=== PATIENT | female | born 1990 | race Caucasian/White ===

== ENCOUNTER → 2024-12-27 | Outpatient (CLI) | payer OTHER, SELFPAY ==
[2024-12-28 10:13] LABS: BVAG Candida Negative (Negative); Bacterial Vaginosis Markers Negative (Negative); Candida glabrata Negative (Negative); Candida krusei PCR Negative (Negative); Trichomonas Negative (Negative)
== END | disposition home or self-care (01) ==
LOC: COPL 16:00
PROVIDERS: PCP Physician Assistant Medical; Referring Provider Physician Assistant Medical; Visit Provider Physician Assistant Medical
DX: B37.89 Other sites of candidiasis (principal); N76.0 Acute vaginitis; A59.01 Trichomonal vulvovaginitis
CPT/HCPCS: 81514

== ENCOUNTER → 2025-01-01 | Outpatient (CLI) | payer OTHER, SELFPAY ==
[2025-01-01 15:13] LABS: Collection Type, Urine Clean Catch; RBC,Urine 0 /hpf (0-3); WBC,Urine 0 /hpf (0-5)
[2025-01-01 15:38] LABS: Basophils % (Auto) 0 % (0-2.5); Eosinophils # (Auto) 0.3 Thou/mm3 (0.0-0.5); Eosinophils % (Auto) 2 % (0-10); Hematocrit 42.9 % (36.0-46.0); Hemoglobin 14.1 g/dL (12.0-16.0); Immature Granulocytes % (Auto) 0 % (0-0); Immature Granulocytes Auto 0.03 Thou/mm3 (0.00-0.00); Lymphocytes # (Auto) 2.1 Thou/mm3 (1.0-4.8); Lymphocytes % (Auto) 20 % (10-50); Mean Corpuscular HGB Conc 32.9 g/dl (31.0-37.0); Mean Corpuscular Hemoglobin 29.6 pg (25.0-35.0); Mean Corpuscular Volume 90 fL (80-100); Monocytes # (Auto) 0.4 Thou/mm3 (0.0-0.8); Monocytes % (Auto) 4 % (0-12); Neutrophils # (Auto) 7.5 Thou/mm3 (1.8-7.7); Neutrophils % (Auto) 73 % (37-80); Nucleated Red Blood Cell % 0 /100 WBC (0); Platelet Count 275 Thou/mm3 (140-440); RDW Standard Deviation 43.8 fL (36.4-46.3); Red Blood Count 4.77 Miln/mm3 (4.00-5.20); White Blood Count 10.4 Thou/mm3 (3.6-11.0)
[2025-01-01 15:57] LABS: Bacteria,Urine 1+; Bilirubin,Urine Negative (Negative); Blood,Urine Negative (Negative); Clarity,Urine Clear (Clear/Hazy); Color,Urine Colorless (Lt Yel-Yel); Glucose, Urine Negative (Negative); Ketones,Urine Negative (Negative); Leukocyte Esterase,Urine Negative (Negative); Nitrite,Urine Negative (Negative); PH,Urine 7.5 (5.0-7.0); Protein,Urine Negative (Neg - Trace); Specific Gravity,Urine 1.004 (1.001-1.035); Squamous Epithelial Cell,Urine 1 /hpf (0-5); Urobilinogen,Urine Negative mg/dL (0.0-1.0)
[2025-01-01 16:01] LABS: Amphetamine/Methamp Scrn,U Negative (Negative); Barbiturate Screen,Urine Negative (Negative); Benzodiazepines Screen,Urine Negative (Negative); Benzoylecgonine Screen, Ur Negative (Negative); Fentanyl Screen,Urine Negative (Negative); Opiate Screen,Urine Negative (Negative); THC Screen,Urine Negative (Negative)
[2025-01-01 16:16] LABS: Hepatitis B Surface Antigen Non Reactive (Non React); Rubella, IgG Antibody Reactive (Immune)
[2025-01-01 16:37] LABS: Beta HCG,Quantitative 25365 mIU/mL (<5.0); Creatinine (Component) 0.8 mg/dL (0.6-1.3); Glucose 85 mg/dL (74-106); eGFR > 60 See Note
[2025-01-01 16:39] LABS: HIV (1&2) Antibody Rapid Non-Reactive
[2025-01-01 17:07] LABS: Glucose Estimated Average 103 mg/dL (80-131); Hemoglobin A1C 5.2 % Hgb (4.8-6.0)
[2025-01-04 17:48] LABS: HCV RNA, PCR <15 NOT DETECTED IU/mL
[2025-01-05 06:25] LABS: HCV RNA, PCR Log IU <1.18 NOT DETECTED Log IU/mL; HIV Ag/Ab, 4th Gen NON-REACTIVE
== END | disposition home or self-care (01) ==
LOC: SLDO 15:08
PROVIDERS: PCP Physician Assistant Medical; Referring Provider Physician Assistant Medical; Visit Provider Physician Assistant Medical
DX: Z34.82 Encounter for supervision of other normal pregnancy, second trimester (principal)
CPT/HCPCS: 36415; 80307; 81001; 82565; 82947; 83036; 84702; 85025; 86703; 86762; 86850; 86900; 86901; 87077; 87086; 87186; 87340; 87389; 87522

== ENCOUNTER → 2025-03-07 | Outpatient (CLI) | payer OTHER, MEDICAID, SELFPAY ==
[2025-03-07 08:39] LABS: Misc Send Out* See Sep Rpt; Quantiferon-TB* See Sep Rpt
[2025-03-07 10:06] LABS: Basophils # (Auto) 0.1 Thou/mm3 (0.0-0.2); Basophils % (Auto) 0 % (0-2.5); Eosinophils # (Auto) 0.3 Thou/mm3 (0.0-0.5); Eosinophils % (Auto) 3 % (0-10); Hematocrit 40.8 % (36.0-46.0); Hemoglobin 13.7 g/dL (12.0-16.0); Immature Granulocytes % (Auto) 1 % (0-0); Immature Granulocytes Auto 0.15 Thou/mm3 (0.00-0.00); Lymphocytes % (Auto) 18 % (10-50); Mean Corpuscular HGB Conc 33.6 g/dl (31.0-37.0); Mean Corpuscular Hemoglobin 30.8 pg (25.0-35.0); Mean Corpuscular Volume 92 fL (80-100); Monocytes # (Auto) 0.5 Thou/mm3 (0.0-0.8); Monocytes % (Auto) 5 % (0-12); Neutrophils # (Auto) 8.3 Thou/mm3 (1.8-7.7); Neutrophils % (Auto) 73 % (37-80); Nucleated Red Blood Cell % 0 /100 WBC (0); Platelet Count 248 Thou/mm3 (140-440); RDW Standard Deviation 44.8 fL (36.4-46.3); Red Blood Count 4.45 Miln/mm3 (4.00-5.20); White Blood Count 11.3 Thou/mm3 (3.6-11.0)
[2025-03-07 10:34] LABS: Hepatitis B Surface Antigen Non Reactive (Non React); Rubella, IgG Antibody Reactive (Immune)
[2025-03-07 10:41] LABS: Glucose Estimated Average 105 mg/dL (80-131); Hemoglobin A1C 5.3 % Hgb (4.8-6.0)
[2025-03-07 10:50] LABS: Creatinine (Component) 0.8 mg/dL (0.6-1.3); Glucose 100 mg/dL (74-106); eGFR > 60 See Note
[2025-03-07 10:51] LABS: Beta HCG,Quantitative 5592 mIU/mL (<5.0)
[2025-03-12 07:18] LABS: HIV Ag/Ab, 4th Gen NON-REACTIVE
== END | disposition home or self-care (01) ==
PROVIDERS: PCP Family Medicine; Referring Provider Family Medicine; Visit Provider Family Medicine
DX: Z34.82 Encounter for supervision of other normal pregnancy, second trimester (principal)
CPT/HCPCS: 36415; 82565; 82947; 83036; 84702; 85025; 86480; 86762; 86850; 86900; 86901; 87340; 87389

== ENCOUNTER → 2025-03-28 | Outpatient (CLI) | payer OTHER, MEDICAID, SELFPAY ==
[2025-03-28 17:11] LABS: Glucose,1 Hour PP 50gm Dose 183 mg/dL (80-140)
[2025-03-28 17:26] LABS: Syphilis Nonreactive (Nonreactive)
== END | disposition home or self-care (01) ==
LOC: SLDO 15:37
PROVIDERS: Referring Provider Physician Assistant Medical; Visit Provider Physician Assistant Medical
DX: Z34.82 Encounter for supervision of other normal pregnancy, second trimester (principal)
CPT/HCPCS: 36415; 82950; 86780

== ENCOUNTER 2025-04-22 18:33 | Observation (INO) | payer OTHER, MEDICAID, SELFPAY ==
[2025-04-22] VITALS (51 sets, daily range): BP systolic 102–132; BP diastolic 53–68; PULSE 88–134; RESP 18–100; TEMP 36.9; O2SAT 92–100; BMI 37.6
--- NOTE | 2025-04-22 19:06 | XR_ITS ---
Examination: Complete OB ultrasound greater than 14 weeks Date and time of exam: April 22, 2025 1923 hours INDICATIONS: Light vaginal bleeding today Findings: Viable intrauterine single fetus with single amniotic sac presentation cephalic Cardiac motion 133 BPM Placenta posterior grade 2 The umbilical cord insertion seen Amniotic fluid index 15.5 cm Cervix 4.0 cm Right ovary 4.7 cm arterial flow Left ovary obscured by bowel gas No placental abruption. Composite estimated gestational age based on BPD, head circumference, abdominal circumference, femur length is 30 weeks 1 day Estimated weight 1530 g. Survey of intracranial anatomy, spinal anatomy, abdominal anatomy, four-chamber heart performed with no abnormalities identified. Impression: Viable intrauterine gestation cephalic presentation.
[2025-04-22 19:38] LABS: ROM Kit Lot # 578010271; ROM Swab Mixed By: YOUNB; Swb Mxed in Solvent 1 min? Yes
[2025-04-22 19:39] LABS: Rupture of Fetal Membranes Positive (Negative)
[2025-04-22] MEDS: RINGERS LACTATED 1000 ML 1,000 ML 75 ML IV (20:18)
[2025-04-22] MEDS: Ampicillin Inj 2,000 MG in SODIUM CHLORIDE 0.9% (POP) 100 ML 200 MG IV (20:18)
[2025-04-22] MEDS: Magnesium Sulfate 4 GM Ivpb 4 GM/50 ML BAG IV (20:19)
[2025-04-22] MEDS: AZITHROMYCIN INJ 500 MG in SODIUM CHLORIDE 0.9% 250 ML 250 ML 250 MG IV (20:37)
[2025-04-22] MEDS: BETAMET ACET/BETAMET NA PH (Celestone) 6 MG/ML VIAL 12 MG IM (20:38)
[2025-04-22] MEDS: MAGNESIUM SULF 20 GM IVPB 20 GM/500 ML BAG IV (20:39)
[2025-04-22 20:50] LABS: Basophils % (Auto) 0 % (0-2.5); Eosinophils # (Auto) 0.3 Thou/mm3 (0.0-0.5); Eosinophils % (Auto) 2 % (0-10); Hematocrit 38.7 % (36.0-46.0); Hemoglobin 13.5 g/dL (12.0-16.0); Immature Granulocytes % (Auto) 1 % (0-0); Immature Granulocytes Auto 0.08 Thou/mm3 (0.00-0.00); Lymphocytes # (Auto) 2.8 Thou/mm3 (1.0-4.8); Lymphocytes % (Auto) 23 % (10-50); Mean Corpuscular HGB Conc 34.9 g/dl (31.0-37.0); Mean Corpuscular Hemoglobin 30.5 pg (25.0-35.0); Mean Corpuscular Volume 88 fL (80-100); Monocytes # (Auto) 0.7 Thou/mm3 (0.0-0.8); Monocytes % (Auto) 5 % (0-12); Neutrophils # (Auto) 8.4 Thou/mm3 (1.8-7.7); Neutrophils % (Auto) 69 % (37-80); Nucleated Red Blood Cell % 0 /100 WBC (0); Platelet Count 256 Thou/mm3 (140-440); RDW Standard Deviation 42.5 fL (36.4-46.3); Red Blood Count 4.42 Miln/mm3 (4.00-5.20); White Blood Count 12.2 Thou/mm3 (3.6-11.0)
--- NOTE | 2025-04-22 20:59 | PD.LDANTE ---
Documentation for date of: 04/22/25 OB Labor/Induct. HPI History of Present Illness : 3 Para: 1 Term pregnancies: 1 pregnancies: 0 Living children: 1 History of Abortions: Spontaneous and Elective: 1 History of Vaginal deliveries: 0 History of sections: Yes History of : No KARLEY: 07/01/25 Gestational Age (weeks): 30 Gestational Age (days): 0 History of present illness: This is a 34-year-old 3 para 1-0-1-1 with intrauterine at 30 weeks and 0 days by last period and first trimester ultrasound. She presented to maternal unit today at 1845 complaining of vaginal spotting and possible leaking. She has had no further leaking since being in the maternal infant unit. She denies any contractions. She reports normal movement. She denies any bleeding since being in the maternal infant unit. Her episode of spotting earlier was after voiding. Patient has a history of a previous low-transverse section at full-term due to failed induction. Her current was complicated by gestational diabetes mellitus class A1 and group B strep urinary tract infection early in . History of Present Dating criteria: LMP confirmed by 1st trimester US Adequate Care: Yes Obstetrical complications: gestational diabetes Medical complications: other (GBS UTI 12/2024. ) Review of Systems Review of Systems Narrative Review of Systems: She denies any chest pain palpitations cough fever shortness of breath or lower extremity pain Past Medical History Surgical History SURGICAL: Positive Section Social History SOCIAL: Denies any alcohol, drug use or smoking Meds Home Medications and Allergies Home Medications ?Medication ?Instructions ?Recorded ?Confirmed ?Type Vitamin * 1 tab PO QDAY SUPPLEMENT #0 tabs 06/05/14 04/22/25 History Allergies Allergy/AdvReac Type Severity Reaction Status Date / Time ceftriaxone AdvReac Mild Hives Verified 04/22/25 20:11 OB Exam Physical Exam Vital signs: Temp Pulse Resp BP Pulse Ox 98.5 F 98 18 112/58 L 100 04/22/25 20:00 04/22/25 20:55 04/22/25 20:00 04/22/25 20:55 04/22/25 20:54 Routine HEENT Exam Comments: Oral pharynx and sclera clear Routine Respiratory Exam Comments: Clear to auscultation bilaterally Routine Cardiovascular Exam Comments: Tachycardic but regular rhythm Routine Abdominal Exam Comments: Gravid consistent with fundus at 30 weeks size nontender no palpable contractions Detailed Labor and Delivery Exam Comments: Perineal pad: No bleeding Routine Extremities Exam Comments: Nontender or edema Routine Skin Exam Comments: No gross rashes or lesions Routine Neurological Exam Comments: No focal deficit OB Results Labs 04/22/25 20:24 04/22/25 20:24 Labs: Short CBC 04/22/25 Range/Units 20:24 WBC 12.2 H (3.6-11.0) Thou/mm3 Hgb 13.5 (12.0-16.0) g/dL Hct 38.7 (36.0-46.0) % Plt Count 256 (140-440) Thou/mm3 Impressions Impression: Intrauterine at 30 weeks and 0 days premature rupture of membranes (Amniosure Positive) Previous delivery Threatened labor Vaginal Bleeding in the 2nd trimester without signs of abruption or previa. Latency antibiotics in the form of ampicillin and Zithromax Magnesium sulfate for NO BAKE MOLDER stabilization and Tocolysis Betamethasone for lung maturity Transfer to tertiary care center with access to maternal- medicine specialist and junior manufacturing engineer Case discussed with Dr. Lilly maternal- medicine at [facility] who agrees to accept patient for transfer Case and plan reviewed with Gavi CLAY charge nurse. Patient is stable for transfer I discussed with the patient and her at length and in detail the nature of her condition her current test results and the risk complications alternatives and benefits of the current treatment plan as well as transfer by ambulance to [place]. She verbalized understanding and agreed to the transfer.
[2025-04-22 21:08] LABS: Alanine Aminotransferase 28 U/L (10-49); Albumin/Globulin Ratio 1.7 (1.2-2.2); Alkaline Phosphatase 87 U/L (46-116); Anion Gap 12 (7-16); Aspartate Amino Transferase 14 U/L (0-34); BUN/Creatinine Ratio 6 Ratio (12-20); Bilirubin,Total 0.2 mg/dL (0.3-1.2); Blood Urea Nitrogen 5 mg/dL (9-23); Calcium 8.9 mg/dL (8.3-10.6); Calcium (Corrected) 8.9 mg/dL (8.5-10.1); Carbon Dioxide 25.1 mMol/L (20.0-31.0); Chloride 106 mMol/L (98-107); Creatinine (Component) 0.8 mg/dL (0.6-1.3); Estimated Creatinine Clearance 101.4 mL/min (>60); Globulin 2.3 gm/dL (2.3-3.5); Glucose 90 mg/dL (74-106); Osmolality,Calculated 282 (275-295); Potassium 3.6 mMol/L (3.4-5.1); Sodium 143 mMol/L (136-145); Total Protein 6.3 gm/dL (5.7-8.2); eGFR > 60 See Note
--- NOTE | 2025-04-23 05:51 | PC.NURSE ---
04/22/25 2210 Left unit with patient and ambulance team. RN to accompany patient on transfer to [facility]. 2215- VS 131/67, 98% RA, 121. FHT 142 bpm. 2230- vs 121/77, 95% ra, 114. fht 146 bpm. 2245- VS 106/69, 94% RA, 115, RR 24FHT 143 2300- VS 101/54, 108, 94% RA. 2315- FHT 155 BPM. 2317- ARRIVED TO [facility].
== END 2025-04-22 21:59 | disposition short-term general hospital (02) ==
PROVIDERS: Admitting Provider Specialist; Visit Provider Specialist
DX: O26.853 Spotting complicating pregnancy, third trimester (principal); O34.211 Maternal care for low transverse scar from previous cesarean delivery; Z3A.30 30 weeks gestation of pregnancy; O24.419 Gestational diabetes mellitus in pregnancy, unspecified control
CPT/HCPCS: 36415; 59025; 59899; 76805; 80053; 84112; 85025; 86850; 86900; 86901; 96372; G0378; J0290; J0456; J0702; J3475; J7050; J7120

== ENCOUNTER → 2025-04-26 | Outpatient (CLI) | payer OTHER, SELFPAY ==
[2025-04-26 17:36] LABS: Basophils % (Auto) 0 % (0-2.5); Eosinophils # (Auto) 0.1 Thou/mm3 (0.0-0.5); Eosinophils % (Auto) 1 % (0-10); Hematocrit 43.7 % (36.0-46.0); Hemoglobin 13.1 g/dL (12.0-16.0); Immature Granulocytes % (Auto) 1 % (0-0); Immature Granulocytes Auto 0.16 Thou/mm3 (0.00-0.00); Lymphocytes % (Auto) 23 % (10-50); Mean Corpuscular Volume 100 fL (80-100); Monocytes % (Auto) 8 % (0-12); Neutrophils # (Auto) 8.9 Thou/mm3 (1.8-7.7); Neutrophils % (Auto) 67 % (37-80); Nucleated Red Blood Cell % 0 /100 WBC (0); Platelet Count 299 Thou/mm3 (140-440); RDW Standard Deviation 53.9 fL (36.4-46.3); Red Blood Count 4.37 Miln/mm3 (4.00-5.20); White Blood Count 13.1 Thou/mm3 (3.6-11.0)
[2025-04-26 18:16] LABS: Syphilis Nonreactive (Nonreactive)
== END | disposition home or self-care (01) ==
LOC: SLDO 16:37
PROVIDERS: Referring Provider Specialist; Visit Provider Specialist
DX: Z34.83 Encounter for supervision of other normal pregnancy, third trimester (principal)
CPT/HCPCS: 36415; 85025; 86780

== ENCOUNTER → 2025-06-04 | Outpatient (CLI) | payer OTHER, SELFPAY ==
[2025-06-05 10:21] LABS: BVAG Candida Negative (Negative); Bacterial Vaginosis Markers Positive (Negative); Candida glabrata Negative (Negative); Candida krusei PCR Negative (Negative); Trichomonas Negative (Negative)
== END | disposition home or self-care (01) ==
LOC: SLDO 16:25
PROVIDERS: Referring Provider Physician Assistant Medical; Visit Provider Physician Assistant Medical
DX: Z34.83 Encounter for supervision of other normal pregnancy, third trimester (principal)
CPT/HCPCS: 81514

== ENCOUNTER 2025-06-21 05:56 | Inpatient (IN) | payer OTHER, MEDICAID, SELFPAY ==
--- NOTE | 2025-06-19 07:39 | ESHP_ITS ---
RE: NI CORTEZ : 1990 DATE OF ADMISSION: 06/21/2025 DATE OF SURGERY: 06/21/2025 HISTORY OF PRESENT ILLNESS: This is a 35-year-old 3, para 1-0-1-1 with due date of 07/01/2025 with intrauterine at 38 weeks and 4 days on 06/21/2025 with borderline chronic hypertension on no medications. She denies any headaches, change in vision, or right upper quadrant pain. Her care was complicated by gestational diabetes, diet controlled. ALLERGIES: PATIENT IS ALLERGIC TO ROCEPHIN. MEDICATIONS: 1. multivitamin 1 p.o. daily. 2. Albuterol 2 puffs q.4 hours p.r.n. shortness of breath or wheezing. 3. Symbicort 2 puffs q.12 hours p.r.n. shortness of breath or wheezing. PAST MEDICAL HISTORY: Borderline chronic hypertension, group B strep carrier, current , gestational diabetes mellitus class A1, delivery, migraine headaches, recurrent urinary tract infections, chronic pelvic pain, advanced maternal age, asthma, anxiety. FAMILY HISTORY: Breast cancer, diabetes, anxiety, hypertension. weeks, delivery, 6 pound 11 ounce male. No complications. PAST SURGICAL HISTORY: delivery 12/2023. REVIEW OF SYSTEMS: She denies any chest pain, palpitations, cough, fever, shortness of breath or lower extremity pain. PHYSICAL EXAMINATION: VITAL SIGNS: Blood pressure 142/87, heart rate 88, respirations 18, temperature 98.6, weight 209 pounds. HEENT: Oropharynx and sclerae are clear. LUNGS: Clear to auscultation bilaterally. HEART: Regular rate and rhythm. ABDOMEN: Gravid, term size. Old Pfannenstiel scar noted. EXTREMITIES: Nontender. SKIN: No gross rashes or lesions. NEUROLOGIC: No focal deficits. ASSESSMENT AND PLAN: Intrauterine at 38 weeks and 4 days, borderline chronic hypertension, gestational diabetes mellitus A1, previous delivery, elects repeat delivery. PLAN: Repeat delivery. Informed consent was obtained. The patient was made aware of the risks, complications, alternatives, and benefits of the proposed procedure and she agrees. DT: 07:03:13 TT: 07:57:00 Ref: [id number] - TID: [id number] [facility]
[2025-06-20 11:04] LABS: Basophils # (Auto) 0.0 Thou/mm3 (0.0-0.2); Basophils % (Auto) 0 % (0-2.5); Eosinophils # (Auto) 0.2 Thou/mm3 (0.0-0.5); Eosinophils % (Auto) 2 % (0-10); Hematocrit 37.4 % (36.0-46.0); Hemoglobin 12.3 g/dL (12.0-16.0); Immature Granulocytes Auto 0.04 Thou/mm3 (0.00-0.00); Lymphocytes # (Auto) 2.3 Thou/mm3 (1.0-4.8); Lymphocytes % (Auto) 28 % (10-50); Mean Corpuscular HGB Conc 32.9 g/dl (31.0-37.0); Mean Corpuscular Hemoglobin 29.4 pg (25.0-35.0); Mean Corpuscular Volume 90 fL (80-100); Monocytes # (Auto) 0.6 Thou/mm3 (0.0-0.8); Monocytes % (Auto) 7 % (0-12); Neutrophils # (Auto) 5.1 Thou/mm3 (1.8-7.7); Neutrophils % (Auto) 62 % (37-80); Nucleated Red Blood Cell # 0.00 Thou/mm3 (0.00-0.00); Nucleated Red Blood Cell % 0 /100 WBC (0); Platelet Count 191 Thou/mm3 (140-440); RDW Standard Deviation 44.9 fL (36.4-46.3); Red Blood Count 4.18 Miln/mm3 (4.00-5.20); White Blood Count 8.2 Thou/mm3 (3.6-11.0)
[2025-06-20 11:18] LABS: Alanine Aminotransferase 12 U/L (10-49); Albumin, Serum 3.8 gm/dL (3.5-5.0); Albumin/Globulin Ratio 1.7 (1.2-2.2); Alkaline Phosphatase 122 U/L (46-116); Anion Gap 10 (7-16); Aspartate Amino Transferase 15 U/L (0-34); BUN/Creatinine Ratio 6 Ratio (12-20); Bilirubin,Total 0.2 mg/dL (0.3-1.2); Blood Urea Nitrogen 5 mg/dL (9-23); Calcium 9.5 mg/dL (8.3-10.6); Calcium (Corrected) 9.7 mg/dL (8.5-10.1); Carbon Dioxide 23.2 mMol/L (20.0-31.0); Chloride 108 mMol/L (98-107); Creatinine (Component) 0.9 mg/dL (0.6-1.3); Globulin 2.2 gm/dL (2.3-3.5); Glucose 72 mg/dL (74-106); Osmolality,Calculated 277 (275-295); Potassium 3.8 mMol/L (3.4-5.1); Sodium 141 mMol/L (136-145); Total Protein 6.0 gm/dL (5.7-8.2); eGFR > 60 See Note
[2025-06-20 11:34] LABS: Syphilis Nonreactive (Nonreactive)
[2025-06-20 12:14] LABS: INR 0.9 (0.9-1.3); Partial Thromboplastin Time 25.1 Seconds (22.0-36.0); Prothrombin Time 10.2 Seconds (9.0-12.2)
[2025-06-21] VITALS (19 sets, daily range): BP systolic 0–134; BP diastolic 0–88; PULSE 71–98; RESP 14–20; TEMP 36.3–37.1; O2SAT 96–100; BMI 39.9
[2025-06-21] MEDS: RINGERS LACTATED 1000 ML 1,000 ML 125 ML IV (06:37)
[2025-06-21] MEDS: FAMOTIDINE INJ 10 MG/ML VIAL 2 ML 20 MG IV (07:25)
[2025-06-21] MEDS: METOCLOPRAMIDE INJ 5 MG/ML VIAL 2 ML 10 MG IVP (07:25)
[2025-06-21] MEDS: GENTAMICIN/NS 80 MG IVPB 80 MG/50 ML PIGGYBACK 50 MG IV (07:25)
--- NOTE | 2025-06-21 07:29 | ESDS_ITS ---
DS: Providers Provider Date of admission: 06/21/25 05:56 Primary care physician: Physician No Primary/Family Admitting Provider: Arnulfo Scott MD Attending Provider on Admission: Arnulfo Scott MD Attending Provider on DC: Arnulfo Scott MD Discharging Provider: Arnulfo Scott MD DS: Diagnosis Discharge Diagnosis (1) Gestational diabetes mellitus, class A1: Status: Acute (2) Borderline hypertension: Status: Acute (3) delivery delivered: Status: Acute Problem List Completed Was Problem List Reviewed/Reconciled?: Yes Summary/Hosp Course Brief History: This is a 35-year-old 3, para 1-0-1-1 with due date of 07/01/2025 with intrauterine at 38 weeks and 4 days on 06/21/2025 with borderline chronic hypertension on no medications. She denies any headaches, change in vision, or right upper quadrant pain. Her care was complicated by gestational diabetes, diet controlled. C/S on 06/21/2025. Viable female 7/8/8. Peripartum Data Delivery Method: Low Transverse Procedures: Procedures Operation Date: 06/21/25 07:45 <No data on this case meets the specified criteria> Time Spent with Patient Time attestation: Total time spent providing and/or coordinating discharge services: Exam Vital Signs Pulse BP 84 131/88 H 06/21/25 07:02 06/21/25 07:02 Discharge Plan Plan Patient Disposition: HOME (Self Care) Patient condition on transfer: Stable Prescriptions/Referrals Prescriptions/Med Rec: New ibuprofen 600 mg tablet 600 mg PO Q6H PRN (Reason: pain) Qty: 30 0RF Continued Vitamin 27 mg iron- 800 mcg tablet 1 tab PO QDAY omeprazole 40 mg capsule,delayed release(DR/EC) 40 mg PO QDAY magnesium 250 mg tablet 250 mg PO QDAY Referrals: No Primary/Family,Physician [Primary Care Provider] - Patient/Caregiver Discharge Instructions Discharge Activity: activity as tolerated Other Discharge Activity Instructions:: Follow up with Dr Scott in the office in 2 weeks. She already has a Rx for [place]. Education Materials: C Section Dc Print Language: Guamanian Stand Alone Forms: Sirisha Award Info., Patient Portal Info Letter Planned Discharge Date 06/23/25
--- NOTE | 2025-06-21 07:31 | ESOP_ITS ---
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 Procedure Date of procedure: 06/21/25 Procedure Performed: Repeat Low Transverse C/S via Pfanensteil Skin Incision Indication: IUP 38w4d Prior C/S Desires repeat Borderline chronic HTN GDMA1 well controlled AMA Pre-Op diagnosis: IUP 38w4d Prior C/S Desires repeat Borderline chronic HTN GDMA1 well controlled AMA Post-Op diagnosis: IUP 38w4d Prior C/S Desires repeat Borderline chronic HTN GDMA1 well controlled AMA Anesthesia type: Spinal Procedure description: After proper informed consent was obtained and the patient was made aware of the risks, complications, alternatives and benefits of the proposed procedure she was taken to the operating room where she underwent induction of spinal anesthesia. She was prepped and draped in the usual sterile fashion. A timeout was performed.? A Pfannenstiel skin incision was made with the scalpel and carried through to the underlying layer of fascia with the Bovie. The fascia was nicked in the midline incision and the incision was extended bilaterally with the Bovie. The inferior aspect of the fascial incision was grasped with Meng clamps elevated and the underlying rectus muscle dissected off with the Bovie. The superior aspect the fascial incision was grasped with Meng clamps elevated and the underlying rectus muscle dissected off with the Bovie. The rectus muscles were in the midline. The peritoneum was grasped between 2 Bassett clamps and entered sharply with the Metzenbaum scissors. The peritoneum was extended superiorly and inferiorly with good visualization of the bladder. The vesicouterine peritoneum was incised transversely and the bladder flap created digitally. A Oumou blade was inserted. A low transverse incision was made in the uterus with a scapel and the incision was extended digitally. The 's head delivered and the mouth and nose were suctioned with the bulb suction. The shoulder and body delivered atraumatically. The cord was clamped after 30 second delayed cord clamping and the cord was cut.? The female infant was handed off to the waiting Pediatric staff, cord blood was collected for lab testing. The placenta was removed complete and intact. The uterus was exteriorized and cleared of all clots and debris. The uterine incision was closed with #1-0 chromic catgut suture in a running interlocking fashion. A second layer of the same suture was used to imbricate the first layer and obtain excellent he mostasis. The vesicouterine peritoneum was closed with 2-0 chromic catgut suture in a running fashion. The firm uterus was returned to the abdomen. The gutters were cleared of all clots and debris. The peritoneum was closed with 0 chromic catgut suture in running fashion. The rectus muscle was closed with 0 chromic catgut suture. The fascia was closed with 0 Vicryl beginning at each angle and ending in the center in a running fashion. The subcutaneous tissue was irrigated with warmed normal saline solution and found to be hemostatic. The subcutaneous tissue was closed with 2-0 chromic catgut suture in a running fashion. The skin was closed with 4-0 Monocryl. A Dermabond Prineo dressing was applied and a sterile pressure dressing was applied.? She tolerated the procedure well. Counts were correct. I discussed with the patient the nature of her condition, intraoperative findings and expectation for recovery all? questions answered. Specimen: none Estimated blood loss (ml): 600 Findings: Viable female , APGARS 7/7/8. Clear amniotic fluid Cephalic Placenta removed complete and intact Normal appearing uterus and ovaries. Complications: none Surgical staff Operation Date: 06/21/25 07:45 <No data on this case meets the specified criteria> [facility] Diagnosis Discharge Diagnosis (1) Gestational diabetes mellitus, class A1: Status: Acute (2) Borderline hypertension: Status: Acute (3) delivery delivered: Status: Acute Problem List Completed Was Problem List Reviewed/Reconciled?: Yes
[2025-06-21] MEDS: OXYTOCIN in NS 20 units 20 UNIT/1,000 ML BAG 125 UNIT IV ×2 (09:12→17:20)
[2025-06-21] MEDS: SIMETHICONE 80 MG CHEW PO ×2 (09:23→17:20)
--- NOTE | 2025-06-21 11:19 | PC.NURSE ---
Pt called out requesting more benadryl, pt reports still feeling itchy. Call made to Yulia Pollack no answer
[2025-06-21] MEDS: ONDANSETRON INJ 2 MG/ML INJ 2 ML 4 MG IVP (13:09)
[2025-06-21 14:37] LABS: Basophils # (Auto) 0.1 Thou/mm3 (0.0-0.2); Basophils % (Auto) 0 % (0-2.5); Eosinophils # (Auto) 0.0 Thou/mm3 (0.0-0.5); Eosinophils % (Auto) 0 % (0-10); Hematocrit 33.1 % (36.0-46.0); Hemoglobin 11.0 g/dL (12.0-16.0); Immature Granulocytes Auto 0.06 Thou/mm3 (0.00-0.00); Lymphocytes # (Auto) 1.8 Thou/mm3 (1.0-4.8); Lymphocytes % (Auto) 12 % (10-50); Mean Corpuscular HGB Conc 33.2 g/dl (31.0-37.0); Mean Corpuscular Hemoglobin 30.0 pg (25.0-35.0); Mean Corpuscular Volume 90 fL (80-100); Monocytes # (Auto) 0.8 Thou/mm3 (0.0-0.8); Monocytes % (Auto) 6 % (0-12); Neutrophils # (Auto) 11.9 Thou/mm3 (1.8-7.7); Neutrophils % (Auto) 81 % (37-80); Nucleated Red Blood Cell # 0.00 Thou/mm3 (0.00-0.00); Nucleated Red Blood Cell % 0 /100 WBC (0); Platelet Count 163 Thou/mm3 (140-440); RDW Standard Deviation 44.5 fL (36.4-46.3); Red Blood Count 3.67 Miln/mm3 (4.00-5.20); White Blood Count 14.7 Thou/mm3 (3.6-11.0)
[2025-06-22] MEDS: ACETAMINOPHEN 325 MG TABLET 650 MG PO (00:01)
[2025-06-22] MEDS: HYDROcodone/APAP 5/325 TABLET 1 TAB PO ×3 (02:53→13:53)
[2025-06-22 03:00] VITALS: BP 113/79; PULSE 80; RESP 16; TEMP 36.6; O2SAT 95
--- NOTE | 2025-06-22 05:56 | OBDSUM_ITS ---
Data (Duran) Data Hx Section: Yes : 3 Term: 1 : 0 Livin Abortions: Spontaneous & Theraputic: 1 Delivery Data (Duran) Labor Data Induction/Augmentation Agent: None ROM date: 06/21/25 ROM time: 08:15 Amniotic membrane rupture type: Artificial Amniotic fluid description: Clear Delivery Data EDC: 07/01/25 EDC calculated by:: LMP/early US confirmation Onset of labor date: 06/21/25 Onset of labor time: 08:15 Complete dilation date: 06/21/25 Complete dilation time: 08:15 [place] delivery date: 06/21/25 [place] delivery time: 08:15 Gestational age (weeks): 38 Gestational age (days): 4 Placenta delivery date: 06/21/25 Placenta delivery time: 08:16 Stage 1 total time: Labor - Stage 1 Duration 0 minutes Delivered by: Geiling Delivery nurse: Daljit Desai nurse: Walter Automatic Trimming Sewer at delivery: No Support person(s) at delivery: FOB Other staff at delivery: ACLLI NOLEN, FAMILY PHYSICIANAGATA Pollack CRNA Delivery Method Delivery method: Low Transverse Presentation: Vertex Anesthesia Type Anesthesia Type: Spinal Anesthesia type: Spinal Placenta Placenta delivery description: Manual Removal Cord blood sent to lab: Yes cord blood collection: Cord Blood Type Episiotomy Episiotomy description: None EBL Estimated blood loss (ml): 600 Umbilical Cord cord description: 3 Vessels Additional Procedures None Complications Complications: None Data (Duran) Data order: 1 's gender: Female Identification band number: [id number] weight (gms): 7 lb 3.346 oz Weight (pounds): 7 lbs and 3.3 ozs [place] length: 19.49 in 1 minute: 7 5 minutes: 7 10 minutes: 8
--- NOTE | 2025-06-22 07:21 | PD.LDPPPRG ---
Subjective Subjective Interval history: Postop day #1 Patient denies any problem or complaint. She is voiding and ambulating and tolerating a regular diet and passing flatus. She denies any nausea or vomiting. She denies any excessive vaginal bleeding. She denies any chest pain palpitation shortness of breath or lower extremity pain. Exam Vital Signs Temp Pulse Resp BP Pulse Ox O2 Del Method 97.9 F 80 16 113/79 95 Room Air 06/22/25 03:00 06/22/25 03:00 06/22/25 03:00 06/22/25 03:00 06/22/25 03:00 06/22/25 03:00 Routine Respiratory Exam Comments: Clear to auscultation bilaterally Routine Cardiovascular Exam Comments: Regular rate and rhythm Routine Abdominal Exam Comments: Dressing dry and intact Fundus is firm Routine Extremities Exam Comments: Nontender Objective Labs 06/21/25 14:05 06/20/25 09:26 Labs: Laboratory Results - last 24 hr 06/21/25 14:05 WBC 14.7 H D RBC 3.67 L Hgb 11.0 L Hct 33.1 L MCV 90 MCH 30.0 MCHC 33.2 RDW Std Deviation 44.5 Plt Count 163 Neut % (Auto) 81 H Lymph % (Auto) 12 [place] % (Auto) 6 Eos % (Auto) 0 Baso % (Auto) 0 Neut # (Auto) 11.9 H Lymph # (Auto) 1.8 [place] # (Auto) 0.8 Eos # (Auto) 0.0 Baso # (Auto) 0.1 Immature Gran # (Auto) 0.06 H Absolute Nucleated RBC 0.00 Immature Gran % 0 Nucleated RBC % 0 Impressions Impression: Postop day #1 Status post delivery Remove dressing Advance care Encourage ambulation support Possible discharge home tomorrow Assessment & Plan Problem List (1) Gestational diabetes mellitus, class A1: Status: Acute (2) Borderline hypertension: Status: Acute (3) delivery delivered: Status: Acute Time Spent With Patient Time: Total time spent is greater than 50% in coordination of care (as documented) at patient's floor/unit and/or counseling patient:
[2025-06-22 07:45] VITALS: BP 110/73; PULSE 97; RESP 20; TEMP 36.7; O2SAT 96
[2025-06-22] MEDS: ENOXAPARIN SOD INJ 40 MG/0.4 ML SYRINGE SC (08:34)
[2025-06-22] MEDS: SIMETHICONE 80 MG CHEW PO (08:35)
[2025-06-22] MEDS: Milk Of Magnesia Susp 30 ML UDC PO (08:35)
[2025-06-22] MEDS: DOCUSATE SOD 100 MG CAPSULE PO (08:35)
--- NOTE | 2025-06-22 12:42 | PC.NURSE ---
1240 SSW ON THE UNIT. REPORTED TO RN PATIENT HAS BEEN SEEN AND MAY DC HOME ONCE MEDICALLY CLEARED
--- NOTE | 2025-06-22 16:22 | PC.CC ---
Maricarmen Woodall is a 35-year-old female admitted for labor and delivery care. Operations Welder made contact with Pt at bedside to complete ob assessment and discuss discharge disposition. Role and reason for the contact was explained to Pt. Demographic information was verified. Pt identified Franklin Woodall [phone] as surrogate decision maker. Pt is independent with all ADLs, no source of DME. PCP is SHALINI. At time of discharge patient will return home, family will provide transportation. Mother plans on breast feeing, has car seat, and all supplies for baby. Mother denies any use of substance, no DV, no CPS. Mother reports support system provided by family. Discharge Plan: Home Next of Kin: Franklin Woodall [phone] PCP: SHALINI
[2025-06-22 16:27] VITALS: BP 118/80; PULSE 99; RESP 20; TEMP 36.7; O2SAT 100
[2025-06-22] MEDS: IBUPROFEN TAB 400 MG TABLET 800 MG PO (16:31)
[2025-06-22 19:28] VITALS: BP 110/72; PULSE 88; RESP 18; TEMP 36.8; O2SAT 96
[2025-06-23 04:32] VITALS: BP 103/70; PULSE 97; RESP 16; TEMP 36.4; O2SAT 95
[2025-06-23] MEDS: HYDROcodone/APAP 5/325 TABLET 2 TAB PO ×2 (04:51→12:39)
[2025-06-23 07:50] VITALS: BP 118/83; PULSE 107; RESP 16; TEMP 37.1; O2SAT 96
[2025-06-23] MEDS: DOCUSATE SOD 100 MG CAPSULE PO (08:07)
--- NOTE | 2025-06-23 14:37 | ESDS_ITS ---
DS: Providers Provider Date of admission: 06/21/25 05:56 Primary care physician: Physician No Primary/Family Admitting Provider: Arnulfo Scott MD Attending Provider on Admission: Ray Lopez MD Consults: 06/21/25 08:39 Referral Routine Comment: Attending Provider on DC: Dayana Jiang MD Discharging Provider: Dayana Jiang MD DS: Diagnosis Discharge Diagnosis (1) delivery delivered: Status: Acute (2) Borderline hypertension: Status: Acute (3) Gestational diabetes mellitus, class A1: Status: Acute Problem List Completed Was Problem List Reviewed/Reconciled?: Yes Summary/Hosp Course Brief History: This is a 35-year-old 3, para 1-0-1-1 with due date of 07/01/2025 with intrauterine at 38 weeks and 4 days on 06/21/2025 with borderline chronic hypertension on no medications. She denies any headaches, change in vision, or right upper quadrant pain. Her care was complicated by gestational diabetes, diet controlled. C/S on 06/21/2025. Viable female 7/8/8. ---- [facility] is doing well on POD 2 s/p uncomplicated section on 06/21. She has had an uncomplicated post-operative course, meeting all milestones and feels ready for discharge home. She is ambulating without lightheadedness, tolerating regular diet no n/v, spontaneously voiding without issue. She has no chest pain or shortness of breath. No fevers or chills. Pain well controlled. Vitals normal, benign exam. Hemodynamically stable with no evidence of infection. Post- op Hgb 11 from 12.3. Peripartum Data Delivery Method: Low Transverse Episiotomy Description: None Procedures: Procedures Operation Date: 06/21/25 07:45 Actual Procedure Side Surgeon p in OB Arnulfo Scott MD Status at Discharge Functional status at discharge: independent ambulation Overall status at discharge: patient is back to baseline Time Spent with Patient Time attestation: Total time spent providing and/or coordinating discharge services: Exam Vital Signs Temp Pulse Resp BP Pulse Ox O2 Del Method 98.8 F 107 H 16 118/83 96 Room Air 06/23/25 07:50 06/23/25 07:50 06/23/25 07:50 06/23/25 07:50 06/23/25 07:50 06/23/25 07:50 Narrative Exam General: well developed, well nourished, no acute distress, conversant Cardiac: normal heart rate Lungs: breathing without distress Abdomen: soft, post-gravid, non-tender, no rebound or guarding, pfannenstiel incision covered by dry/clean/intact prineo bandage. Incision well reapproximated. No erythema, drainage or induration. Fundus firm at u-2cm. Extremities: no pain with palpation of calves, 1+ edema of BLE Discharge Plan Plan Patient Disposition: HOME (Self Care) Patient condition on transfer: Stable Prescriptions/Referrals Prescriptions/Med Rec: New ibuprofen 600 mg tablet 600 mg PO Q6H PRN (Reason: pain) Qty: 30 0RF docusate sodium [Colace] 100 mg capsule 100 mg PO BID Qty: 20 0RF Continued Vitamin 27 mg iron- 800 mcg tablet 1 tab PO QDAY omeprazole 40 mg capsule,delayed release(DR/EC) 40 mg PO QDAY magnesium 250 mg tablet 250 mg PO QDAY Referrals: No Primary/Family,Physician [Primary Care Provider] - Patient/Caregiver Discharge Instructions Discharge Activity: activity as tolerated Other Discharge Activity Instructions:: Follow up with Dr Scott in the office in 2 weeks. She already has a Rx for [place]. Other Discharge Diet Instructions: regular diet Education Materials: C Section Dc Print Language: Belarusian Activity Restrictions/Additional Instructions: Vaginal rest, no heavy lifting more than 10 pounds for 6 weeks[address] No [address] while taking narcotic. Do not submerge incision, keep clean and dry. Stand Alone Forms: Sirisha Award Info., Patient Portal Info Letter Discharge Order Discharge Orders: Discharge (Routine); Ordered 06/23/25 Ordered By: Dayana Jiang Planned Discharge Date 06/23/25
== END 2025-06-23 15:20 | disposition home or self-care (01) | DRG 788 ==
LOC: S4SX 07:27 → S4NX 08:09
PROVIDERS: Admitting Provider Specialist; Visit Provider Obstetrics & Gynecology
PROC: 10D00Z1 Extraction of Products of Conception, Low, Open Approach (ICD-10-PCS; CPT 59514; principal; 2025-06-21 07:30)
DX: O34.211 Maternal care for low transverse scar from previous cesarean delivery (principal); O24.420 Gestational diabetes mellitus in childbirth, diet controlled; Z37.0 Single live birth; O16.4 Unspecified maternal hypertension, complicating childbirth; Z3A.38 38 weeks gestation of pregnancy; Z88.1 Allergy status to other antibiotic agents
CPT/HCPCS: 36415; 80053; 85025; 85610; 85730; 86780; 86850; 86900; 86901; A4314; A4649; J1200; J1580; J1650; J2250; J2274; J2371; J2405; J2590; J2765; J3490; J7120; S0077; A9270; J0736; J2270

== ENCOUNTER 2025-06-23 19:36 | Emergency (ER) | payer OTHER, MEDICAID, SELFPAY ==
[2025-06-23 19:37] VITALS: BMI 39.6
[2025-06-23 19:46] VITALS: BP 140/86; PULSE 130; RESP 20; TEMP 37.8; O2SAT 99
--- NOTE | 2025-06-23 19:51 | XR_ITS ---
Examination: PA chest single view TECHNIQUE: Upright PA chest single view. Date and time: June 23, 2025, 2018 hours. INDICATIONS: Fever today, status post 2 days ago. FINDINGS: Normal heart size. Lungs are clear. Osseous structures are intact. IMPRESSION: No active disease.
--- NOTE | 2025-06-23 19:51 | XR_ITS ---
Examination: Breast ultrasound complete, bilateral Date and time of exam: June 23, and 8009, 2023 hours INDICATIONS: Status post 2 days ago with bilateral breast pain Technique: Real-time grayscale ultrasonographic imaging bilateral breasts, including all 4 quadrants as well as nipple retroareolar and axillary regions. Findings: No cystic or solid mass IMPRESSION: Negative study
[2025-06-23 20:30] LABS: Collection Type, Urine Voided
[2025-06-23 20:38] LABS: Bilirubin,Urine Negative (Negative); Blood,Urine 2+ (Negative); Clarity,Urine Clear (Clear/Hazy); Color,Urine Colorless (Lt Yel-Yel); Glucose, Urine Negative (Negative); Ketones,Urine Negative (Negative); Leukocyte Esterase,Urine Negative (Negative); Nitrite,Urine Negative (Negative); PH,Urine 7.5 (5.0-7.0); Protein,Urine Negative (Neg - Trace); RBC,Urine < 1 /hpf (0-3); Specific Gravity,Urine 1.004 (1.001-1.035); Squamous Epithelial Cell,Urine 1 /hpf (0-5); Urobilinogen,Urine Negative mg/dL (0.0-1.0); WBC,Urine 1 /hpf (0-5)
--- NOTE | 2025-06-23 22:05 | XR_ITS ---
Examination: CT abdomen and pelvis without contrast. Coronal 3-D reconstructions. Sagittal 2-D reconstructions. Date and time of exam:June 23, 2025 10:20 PM INDICATIONS: Fever 2 days ago CTDI: vol (mGy): 11.7 DLP: (mGycm): 648 Technique: Axial images of the abdomen have been obtained, 3 mm slice thickness Intravenous contrast material has not been administered. Low dose protocols were performed. One or more of the following dose reduction techniques were used; automated exposure control, adjustment of the mA and/or KV according to patient size, use of iterative reconstruction technique. Findings: No focal liver or splenic lesions No gallstones No pancreatic or adrenal mass. No renal or ureteral calculi, no hydronephrosis Normal appendix uterus with postop changes in the anterior pelvic wall Thickening of the endometrial stripe in the lower uterine segment up to 15 mm No abdominal or pelvic abscess Mild thickening of the urinary bladder Moderate narrowing L5-S1 IMPRESSION: Thickening of the endometrial stipe of the lower uterine segment, recommend pelvic sonography follow-up to exclude retained products of conception, as clinically warranted. Mild cystitis pattern
[2025-06-23 22:31] LABS: Basophils # (Auto) 0.0 Thou/mm3 (0.0-0.2); Basophils % (Auto) 0 % (0-2.5); Eosinophils # (Auto) 0.3 Thou/mm3 (0.0-0.5); Eosinophils % (Auto) 3 % (0-10); Hematocrit 33.6 % (36.0-46.0); Hemoglobin 10.7 g/dL (12.0-16.0); Immature Granulocytes Auto 0.07 Thou/mm3 (0.00-0.00); Lymphocytes # (Auto) 1.5 Thou/mm3 (1.0-4.8); Lymphocytes % (Auto) 13 % (10-50); Mean Corpuscular HGB Conc 31.8 g/dl (31.0-37.0); Mean Corpuscular Hemoglobin 29.4 pg (25.0-35.0); Mean Corpuscular Volume 92 fL (80-100); Monocytes # (Auto) 0.7 Thou/mm3 (0.0-0.8); Monocytes % (Auto) 6 % (0-12); Neutrophils # (Auto) 8.8 Thou/mm3 (1.8-7.7); Neutrophils % (Auto) 77 % (37-80); Nucleated Red Blood Cell # 0.00 Thou/mm3 (0.00-0.00); Nucleated Red Blood Cell % 0 /100 WBC (0); Platelet Count 241 Thou/mm3 (140-440); RDW Standard Deviation 46.5 fL (36.4-46.3); Red Blood Count 3.64 Miln/mm3 (4.00-5.20); White Blood Count 11.5 Thou/mm3 (3.6-11.0)
[2025-06-23 22:35] VITALS: BP 117/79; PULSE 108; RESP 20; TEMP 37.7; O2SAT 98
[2025-06-23 22:50] LABS: Alanine Aminotransferase 18 U/L (10-49); Albumin, Serum 3.8 gm/dL (3.5-5.0); Albumin/Globulin Ratio 1.7 (1.2-2.2); Alkaline Phosphatase 112 U/L (46-116); Anion Gap 9 (7-16); Aspartate Amino Transferase 28 U/L (0-34); BUN/Creatinine Ratio 6 Ratio (12-20); Bilirubin,Total 0.3 mg/dL (0.3-1.2); Blood Urea Nitrogen < 5 mg/dL (9-23); Calcium 9.2 mg/dL (8.3-10.6); Calcium (Corrected) 9.4 mg/dL (8.5-10.1); Carbon Dioxide 25.0 mMol/L (20.0-31.0); Chloride 107 mMol/L (98-107); Creatinine (Component) 0.8 mg/dL (0.6-1.3); Estimated Creatinine Clearance 103.5 mL/min (>60); Globulin 2.2 gm/dL (2.3-3.5); Glucose 84 mg/dL (74-106); Lipase 32 U/L (12-53); Osmolality,Calculated 277 (275-295); Potassium 3.5 mMol/L (3.4-5.1); Sodium 141 mMol/L (136-145); Total Protein 6.0 gm/dL (5.7-8.2); eGFR > 60 See Note
[2025-06-23] MEDS: SODIUM CHLORIDE 0.9% 1000 ML 1,000 ML 999 ML IV (22:51)
[2025-06-24 00:25] VITALS: TEMP 37.4
--- NOTE | 2025-06-24 03:06 | PD.EDFEVER ---
ED Fever RME/HPI General Chief Complaint: Fever Stated Complaint: FEVER 100.4 Time Seen by Provider: 06/23/25 19:38 Arrival date/time: 06/23/25 19:36 This is a case of 35-year-old female with no medical history is status post section 06/21/2025 and was discharged today came in in the emergency room due to fever of 101 associated with breast pain patient denies any abdominal pain urinary symptoms denies any cough or nasal congestion persistence of the symptoms this patient decided to sought consult here in the emergency room Limitations: no limitations Related Data Home Medications ?Medication ?Instructions ?Recorded ?Confirmed magnesium 250 mg tablet 250 mg PO QDAY 06/21/25 06/21/25 omeprazole 40 mg capsule,delayed 40 mg PO QDAY 06/21/25 06/21/25 release vits no.130-ferrous fum 1 tab PO QDAY 06/21/25 06/21/25 27 mg iron-folic acid 800 mcg tablet ( Vitamin) Previous Rx's ?Medication ?Instructions ?Recorded ibuprofen 600 mg tablet 600 mg PO Q6H PRN pain #30 tabs 06/21/25 docusate sodium 100 mg capsule 100 mg PO BID #20 caps 06/23/25 (Colace) Allergies Allergy/AdvReac Type Severity Reaction Status Date / Time ceftriaxone AdvReac Mild Hives Verified 06/23/25 19:43 Review of Systems Review of Systems Systems Reviewed: All systems reviewed, normal except as documented Constitutional Constitutional: Reports system reviewed and no additional complaints, except as documented, Reports as per HPI, Denies chills and Reports fever(s) ENT Ears, Nose, Mouth, and Throat: Reports system reviewed and no additional complaints, except as documented and Reports as per HPI Cardiovascular Cardiovascular: Reports system reviewed and no additional complaints, except as documented, Reports as per HPI, Denies chest pain, Denies dyspnea and Denies dyspnea on exertion Respiratory Respiratory: Reports system reviewed and no additional complaints, except as documented, Reports as per HPI, Denies chest congestion, Denies cough, Denies dyspnea and Denies dyspnea on exertion Gastrointestinal Gastrointestinal: Reports system reviewed and no additional complaints, except as documented, Reports as per HPI, Denies abdominal pain, Denies diarrhea, Denies nausea and Denies vomiting Musculoskeletal Musculoskeletal: Reports system reviewed and no additional complaints, except as documented and Reports as per HPI Neurologic Neurologic: Reports system reviewed and no additional complaints, except as documented and Reports as per HPI Past Medical History Past Medical History NEUROLOGIC: Positive Neurological Disorders and Migraine; Negative Cerebrovascular Accident, Transient Ischemic Attacks (TIA), Alzheimer's Disease, Parkinson's Disease, Brain Tumor, Meningitis, Seizures, Multiple Sclerosis, Cerebral Palsy, Amyotrophic Lateral Sclerosis (ALS/Dorota Gehrig's), Spina Bifida, Paralysis, Peripheral Neuropathy, Zamora's Palsy, Subdural Hematoma, Head Trauma, Spinal Cord Injury or Traumatic Brain Injury CARDIAC: Positive Cardiac Disorders (BORDERLINE CHTN) and Hypertension; Negative Myocardial Infarction, Cardiac Arrhythmia, Atrial Fibrillation, Angina, Heart Murmur, Coronary Artery Disease, Atherosclerotic Heart Disease, Peripheral Vascular Disease, Hypercholesterolemia, Aneurysm, Congestive Heart Failure, Congenital Heart Disease, Valvular Heart Disease, Rheumatic Fever, Cardiomyopathy, Edema, Pericarditis, Cellulitis, Deep Vein Thrombosis, Hypotension or Varicose Veins RESPIRATORY: Positive Asthma (HAS NOT USED INHALER ALL ); Negative Chronic Obstructive Pulmonary Disease (COPD), Bronchitis, Emphysema, Pneumonia, Pulmonary Fibrosis, Cystic Fibrosis, Tuberculosis, Pulmonary Embolism, Pulmonary Edema or Sleep Apnea GASTROINTESTINAL: Positive Gastrointestinal Disorders, Gastroesophageal Reflux Disease and Obesity; Negative Hepatitis, Cirrhosis, Pancreatitis, Celiac Disease, Gall Bladder Disease, Gastrointestinal Bleed, Esophageal Varices, Frost's Esophagus, Colitis, Ulcerative Colitis, Diverticulitis, Diverticulosis, Ulcer, Colorectal Cancer, Irritable Bowel, Crohn's Disease, Obstructive Bowel, Hiatal Hernia or Hemorrhoids GENITOURINARY: Negative Genitourinary Disorders (RECURRENT UTI'S), Renal Disease, Kidney Stones, Polycystic Kidney Disease, Neurogenic Bladder, Inguinal Hernia, Dialysis or Prostate Cancer REPRODUCTIVE: Positive Previous Pregnancies (X2); Negative Breast Cancer, Endometriosis, Genital Herpes, Gonorrhea, Pelvic Inflammatory Disease, Syphilis, Testicular Cancer or Uterine Prolapse MUSCULOSKELETAL: Negative Musculoskeletal Disorders or Bone Cancer ENT: Negative Head Trauma ENDOCRINE: Positive Endocrine Disorders (GDM DIET); Negative Diabetes Mellitus Type 1, Diabetes Mellitus Type 2, Hypoglycemia, Coy's Syndrome, Boyers's Disease, Hyperthyroidism, Hypothyroidism, Parathyroid Disease, Pituitary Disease, Systemic Lupus Erythematosus, Syndrome of Inappropriate Antidiuretic Hormone (SIADH), Adrenal Disease or Graves' Disease HEMATOLOGIC: Negative Blood Disorders, Anemia, Leukemia, Hemophilia, Thalassemia, Sickle Cell Disease or Clotting Problems PSYCHO/SOCIAL: Positive Depression and Anxiety; Negative Psychiatric Problems, Schizophrenia, Recreational Drug Use, Bipolar Disorder, Behavior Problems, Self-Mutilation, Attention Deficit Disorder, Attention Deficit Hyperactivity Disorder, Depression, Post Traumatic Stress Disorder or Eating Disorder OTHER HISTORY: Positive Hospitalization (miscarriage 2013) and Chicken Pox (as a child); Negative Autoimmune Disease, Down Syndrome, Autism, Developmental Delay, Shingles, Falls, Blood Transfusions, Blood Transfusion Reaction, Anesthesia Reactions, Organ Transplant, Chemotherapy, Radiation Therapy, Hyperbaric Therapy, MRSA, VRSA, Vancomycin-Resistant Enterococci, Human Immunodeficiency Virus (HIV), Measles, Mumps, Rubella ([place]ian Measles), Pertussis, Clostridium Difficile, Cancer, Breast Cancer, Cervical Cancer, Colorectal Cancer, Lung Cancer, Ovarian Cancer, Prostate Cancer or Testicular Cancer Family History FAMILY HISTORY: Positive Family Psychiatric Problems (GRANDMOTHER, ANXIERY), Family Respiratory Disorders (GRANDMOTHER, ASTHMA), Family Cardiac Disorders (GRANDFATHER, TRIPLE BYPASS AND HTN), Family Cancer (GRANDMOTHER, BREAST AND SKIN LUNG) and Family Surgery (GRANDFATHER, TRIPLE BYPASS); Negative Family Gastrointestinal Problems or Family Anesthesia Reaction Surgical History SURGICAL: Positive Section; Negative Cardiac Surgery, Pacemaker, Endocrine Surgery, Thyroidectomy, Ear Surgery, Abdominal Surgery, Nephrectomy, Joint Replacement, Neurologic Surgery, Lumpectomy or Organ Transplant Social History SMOKING STATUS: Never smoker Physical Exam General Limitations: no limitations General appearance: alert, in no apparent distress and other (Patient is awake alert oriented not in distress nontoxic looking well-hydrated well-nourished) Head Head exam: atraumatic, normocephalic and normal inspection Eye Eye exam: Present normal appearance, PERRL and EOMI ENT ENT exam: Present normal exam, normal oropharynx, mucous membranes moist and other (HEENT exam is normal and unremarkable) Neck Neck exam: Present normal inspection, full ROM, trachea midline and other (Negative for meningeal sign); Absent tenderness, meningismus, lymphadenopathy or thyromegaly Chest Chest inspection: Present normal inspection and symmetric chest wall rise; Absent tenderness Expanded Chest Exam Breast: bilateral: tenderness (Noted bilateral breast tenderness but no redness no swelling no nipple discharge no retraction) Respiratory Respiratory exam: Present normal lung sounds bilaterally; Absent respiratory distress, wheezes, stridor, accessory muscle use or prolonged expiratory phase Cardiovascular Cardiovascular exam: Present regular rate, normal rhythm and normal heart sounds; Absent bradycardia, tachycardia, irregular rhythm or systolic murmur Abdominal Exam Abdominal exam: Present soft, normal bowel sounds and other (Noted a suprapubic incision no signs and symptoms of infection); Absent distention, tenderness, guarding, rebound, rigidity, diminished bowel sounds, hyperactive bowel sounds, hypoactive bowel sounds or organomegaly Extremities Exam Extremities exam: Present normal inspection and full ROM Back Exam Back exam: Present normal inspection and full ROM Neurological Exam Neurological exam: Present alert, oriented X3, CN II-XII intact, normal gait and reflexes normal; Absent motor sensory deficit Psychiatric Psychiatric exam: Present normal affect and normal mood Skin Skin exam: Present warm, dry, intact and normal color ED Exam General Limitations: Present no limitations General appearance: Present alert, in no apparent distress and other (Patient is awake alert oriented not in distress nontoxic looking well-hydrated well-nourished) Head Head exam: Present atraumatic, normocephalic and normal inspection Eye Eye exam: Present normal appearance, PERRL and EOMI ENT ENT exam: Present normal exam, normal oropharynx, mucous membranes moist and other (HEENT exam is normal and unremarkable) Neck Neck exam: Present normal inspection, full ROM, trachea midline and other (Negative for meningeal sign); Absent tenderness, meningismus, lymphadenopathy or thyromegaly Chest Chest inspection: Present normal inspection and symmetric chest wall rise; Absent tenderness Expanded Chest Exam Breast: bilateral: tenderness (Noted bilateral breast tenderness but no redness no swelling no nipple discharge no retraction) Respiratory Respiratory exam: Present normal lung sounds bilaterally; Absent respiratory distress, wheezes, stridor, accessory muscle use or prolonged expiratory phase Cardiovascular Cardiovascular exam: Present regular rate, normal rhythm and normal heart sounds; Absent bradycardia, tachycardia, irregular rhythm or systolic murmur Abdominal Exam Abdominal exam: Present soft, normal bowel sounds and other (Noted a suprapubic incision no signs and symptoms of infection); Absent distention, tenderness, guarding, rebound, rigidity, diminished bowel sounds, hyperactive bowel sounds, hypoactive bowel sounds or organomegaly Extremities Exam Extremities exam: Present normal inspection and full ROM Back Exam Back exam: Present normal inspection and full ROM Neurological Exam Neurological exam: Present alert, oriented X3, CN II-XII intact, normal gait and reflexes normal; Absent motor sensory deficit Psychiatric Psychiatric exam: Present normal affect and normal mood Skin Skin exam: Present warm, dry, intact and normal color Course Quality Measures none Orders Category Date Time Status Bedside COVID-19 Antigen Test NOW Care 06/23/25 19:51 Active Bedside Influenza A&B Antigen Test NOW Care 06/23/25 19:51 Completed Insert IV NOW Care 06/23/25 22:[address] abdomen pelvis wo con Stat Exams 06/23/25 22:05 Completed US breast BI complete Stat Exams 06/23/25 19:51 Completed XR chest 1V portable Stat Exams 06/23/25 19:51 Completed CBC Stat Lab 06/23/25 22:14 Completed CMP [Comprehensive Metabolic Panel] Stat Lab 06/23/25 22:19 Completed Lipase Stat Lab 06/23/25 22:19 Completed Urinalysis Stat Lab 06/23/25 20:00 Completed Sodium Chloride 0.9% 1000 ml [Ns] 1,000 ml Med 06/23/25 21:40 Discontinued IV 999 mls/hr Vital Signs Vital signs: Vital Signs Temperature 100.1 F 06/23/25 19:46 Pulse Rate 130 H 06/23/25 19:46 Respiratory Rate 20 06/23/25 19:46 Blood Pressure 140/86 H 06/23/25 19:46 Pulse Oximetry (%) 99 06/23/25 19:46 Oxygen Delivery Method Room Air 06/23/25 19:46 Patient is slightly febrile at 100.1 slightly tachycardic not tachypneic BP stable not hypoxic oxygen saturation in room air after giving a hydration heart rate noted to be 99.5 Fever MDM Narrative MDM Narrative:: This is a case of 35-year-old female with no medical history is status post section 06/21/2025 and was discharged today came in in the emergency room due to fever of 101 associated with breast pain patient denies any abdominal pain urinary symptoms denies any cough or nasal congestion persistence of the symptoms this patient decided to sought consult here in the emergency room physical examination patient is awake alert oriented not in distress nontoxic looking no signs and symptoms of sepsis no dehydration no signs and symptoms of acute abdomen lungs sound is clear no crackles no rales no retraction no stridor negative for meningeal sign normal rate regular rhythm no murmur abdominal exam is benign nonsurgical no guarding no rebound no rigidity incision on the suprapubic area no cellulitis no abscess no signs and symptoms of infection the rest of the physical examination and neurological exam is normal and unremarkable blood test showed WBC of 11 which improved markedly from the 06/21/2025 which is 14 platelet is normal slightly anemic 10.7 status post CSS section no electrolyte imbalance kidney and liver function is normal urinalysis is normal call patient COVID and flu is negative breast ultrasound is normal CT scan showed normal and unremarkable I discussed the patient with Dr. Jiang who discharge the patient yesterday discussed patient condition history and physical examination the physician itself went to the patient in the room and examined and discussed the treatment plan I was instructed to discharge the patient with no medication continue to monitor the patient and will follow-up with the OB in 2 days and for any worsening symptoms return to the emergency room immediately or call 911 Patient was discharged with comfortable condition walking with stable gait. Patient verbalized no further complains explained diagnosis and answered patient question. Patient is comfortable with the proposed management plan including the need to follow up with his/her primary care physician and any specialist if applicable Discussed patient for any urgent condition or worsening sx, He/She needed to go to emergency room immediately or call 911. Patient acknowledge the responsibility to follow up as instructed and to monitor her/his symptoms. For any persistence of the symptoms for more than 3-5 days return precaution advised. Discussed the result of the test and was given printed discharge instruction Patient data External records reviewed:: [facility] previous records Clinical information provided by:: patient Social determinants that could affect healthcare access:: none Patient has the following chronic illnesses:: None How is presenting disease/condition affected by chronic disease/condition?: no chronic disease Evaluation data The following diagnostics were reviewed and interpreted by me:: lab results and radiology exam(s) Lab and/or radiology exams considered but not ordered:: Reviewed Interpretation Summary: Reviewed Medications / Prescriptions Medications or Prescriptions considered but not ordered:: None Medication administrations:: Medication Administration History Discontinued Medications Sodium Chloride (Ns) 1,000 mls @ 999 mls/hr IV .Q1H1M ONE Stop: 06/23/25 22:40 Last Infusion: 06/23/25 23:58 Dose: Infused Documented By: Admin: 06/23/25 22:51 Dose: 999 mls/hr Documented By: BD None Consultations Consultation(s) initiated? (list below): Yes Consultation #1 (Physician, Specialty, Details): Dr. Jiang discharge patient no antibiotic follow-up with OB Diagnosis Fever Differential Diagnosis: fever of unknown origin, community acquired pneumonia and other (Urinary tract infection) Most likely diagnosis given after review of the tests above:: Fever breast engorgement Admission Indicated Admission indicated?: not indicated Explain why admission is indicated or not indicated:: Not indicated Admission Request Was there a request for admission?: No Admission Attestation Admission request attestation: Not indicated Disposition Plan Disposition Plan: Discharge Discharge Attestation Discharge Attestation: The patient and all family members were given an opportunity to ask questions and understood the discharge instructions. Discharge instructions specifically effects, indications for sooner follow up or return to the emergency department, and the expected course of current diagnosis. Patient condition: Stable Discharge Plan Plan Patient Disposition: HOME (Self Care) Patient condition on transfer: Stable Prescriptions/Referrals Prescriptions/Med Rec: No Action Vitamin 27 mg iron- 800 mcg tablet 1 tab PO QDAY omeprazole 40 mg capsule,delayed release(DR/EC) 40 mg PO QDAY magnesium 250 mg tablet 250 mg PO QDAY ibuprofen 600 mg tablet 600 mg PO Q6H PRN (Reason: pain) Qty: 30 0RF docusate sodium [Colace] 100 mg capsule 100 mg PO BID Qty: 20 0RF Referrals: No Primary/Family,Physician [Primary Care Provider] - In 1 week Problem List Clinical Impression: Fever, Breast pain, Breast engorgement, Status post Patient/Caregiver Discharge Instructions Education Materials: What Are Benign Breast Conditions?, Breast Anatomy, C Section Dc, ED FUO Adult Additional Instructions: Follow-up with your primary care physician in 2 days for reevaluation follow-up also with your OB/GYNe Dr Scott for further evaluation and treatment and status post section follow-up worsening symptoms persistence of symptoms or any emergent concern call 911 or go to the nearest emergency room increase water intake keep hydrated is advised following continue the discharge instruction that was given by the OB physician yesterday Print Language: Yemeni Stand Alone Forms: Sirisha Award Info., Patient Portal Info Letter PA/CRM TECHNICAL LEAD Supervising Physician PA/KITTY Supervising Physician: Dr San
== END 2025-06-24 03:19 | disposition home or self-care (01) ==
PROVIDERS: Nurse Practitioner Family; Emergency Provider Emergency Medicine
DX: O86.4 Pyrexia of unknown origin following delivery (principal); O90.89 Other complications of the puerperium, not elsewhere classified; N64.4 Mastodynia; N64.59 Other signs and symptoms in breast
CPT/HCPCS: 36415; 71045; 74176; 76641; 80053; 81001; 83690; 85025; 87400; 87811; 96360; 99284; J7030